=== PATIENT | female | born 2005 | race Caucasian/White ===

== ENCOUNTER 2024-09-22 09:56 | Outpatient (AMB) | payer MEDICAID, SELFPAY ==
[2024-09-22 10:13] VITALS: BP 110/74; PULSE 86; RESP 18; TEMP 36.2; O2SAT 86; BMI 18.1
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
== END 2024-09-22 10:36 | disposition home or self-care (01) ==
LOC: HODSOBC 09:56
PROVIDERS: Supervising Provider Obstetrics & Gynecology; Visit Provider Obstetrics & Gynecology
DX: O09.891 Supervision of other high risk pregnancies, first trimester (principal); Z3A.10 10 weeks gestation of pregnancy; O99.011 Anemia complicating pregnancy, first trimester; O21.0 Mild hyperemesis gravidarum; Z87.891 Personal history of nicotine dependence
CPT/HCPCS: 76801; 99203; G0463

== ENCOUNTER 2024-10-22 10:52 | Outpatient (AMB) | payer MEDICAID, SELFPAY ==
[2024-10-22 11:00] VITALS: BP 105/71; PULSE 90; RESP 18; TEMP 36.3; O2SAT 99; BMI 18.8
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
== END 2024-10-22 11:34 | disposition home or self-care (01) ==
LOC: HODSOBC 10:52
PROVIDERS: PCP Obstetrics & Gynecology; Referring Provider Obstetrics & Gynecology; Supervising Provider Obstetrics & Gynecology; Visit Provider Obstetrics & Gynecology
DX: O09.612 Supervision of young primigravida, second trimester (principal); Z3A.16 16 weeks gestation of pregnancy; O09.892 Supervision of other high risk pregnancies, second trimester; O99.012 Anemia complicating pregnancy, second trimester; D50.9 Iron deficiency anemia, unspecified; O99.891 Other specified diseases and conditions complicating pregnancy; R82.4 Acetonuria; Z87.891 Personal history of nicotine dependence
CPT/HCPCS: 99214; G0463

== ENCOUNTER 2024-11-20 10:29 | Outpatient (AMB) | payer MEDICAID, SELFPAY ==
[2024-11-20 10:43] VITALS: BP 100/66; PULSE 87; RESP 17; TEMP 36.7; O2SAT 98; BMI 19.5
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
== END 2024-11-20 11:19 | disposition home or self-care (01) ==
PROVIDERS: Supervising Provider Obstetrics & Gynecology; Visit Provider Obstetrics & Gynecology
DX: O09.92 Supervision of high risk pregnancy, unspecified, second trimester (principal); Z3A.20 20 weeks gestation of pregnancy
CPT/HCPCS: 99213; G0463

== ENCOUNTER 2025-01-06 08:52 | Outpatient (AMB) | payer MEDICAID, SELFPAY ==
[2025-01-06 09:11] VITALS: BP 113/77; PULSE 75; RESP 17; TEMP 36.5; O2SAT 99; BMI 21.7
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
== END 2025-01-06 09:44 | disposition home or self-care (01) ==
LOC: HODSOBC 08:52
PROVIDERS: Supervising Provider Obstetrics & Gynecology; Visit Provider Obstetrics & Gynecology
DX: O09.892 Supervision of other high risk pregnancies, second trimester (principal); O99.012 Anemia complicating pregnancy, second trimester; Z3A.26 26 weeks gestation of pregnancy; Z87.891 Personal history of nicotine dependence
CPT/HCPCS: 99213; G0463

== ENCOUNTER 2025-02-03 08:48 | Outpatient (AMB) | payer MEDICAID, SELFPAY ==
[2025-02-03 09:03] VITALS: BP 108/69; PULSE 90; RESP 16; TEMP 36.2; O2SAT 98; BMI 22.9
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
== END 2025-02-03 09:43 | disposition home or self-care (01) ==
LOC: HODSOBC 08:48
PROVIDERS: Supervising Provider Obstetrics & Gynecology; Visit Provider Obstetrics & Gynecology
DX: Z34.03 Encounter for supervision of normal first pregnancy, third trimester (principal); Z3A.30 30 weeks gestation of pregnancy; Z23 Encounter for immunization
CPT/HCPCS: 90471; 90715; 99213; G0463

== ENCOUNTER 2025-02-23 09:38 | Outpatient (AMB) | payer MEDICAID, SELFPAY ==
[2025-02-23 10:20] VITALS: BP 107/74; PULSE 100; RESP 18; TEMP 36.4; O2SAT 99; BMI 23.9
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
== END 2025-02-23 10:51 | disposition home or self-care (01) ==
LOC: HODSOBC 09:38
PROVIDERS: Supervising Provider Obstetrics & Gynecology; Visit Provider Obstetrics & Gynecology
DX: O09.893 Supervision of other high risk pregnancies, third trimester (principal); Z3A.33 33 weeks gestation of pregnancy; O99.013 Anemia complicating pregnancy, third trimester; D50.9 Iron deficiency anemia, unspecified; Z87.891 Personal history of nicotine dependence
CPT/HCPCS: 99214; G0463

== ENCOUNTER 2025-03-12 13:54 | Outpatient (AMB) | payer MEDICAID, SELFPAY ==
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
[2025-03-12 14:00] VITALS: BP 120/84; PULSE 120; RESP 16; TEMP 36.2; O2SAT 99; BMI 24.8
== END 2025-03-12 14:10 | disposition home or self-care (01) ==
LOC: HODSOBC 13:54
PROVIDERS: Supervising Provider Obstetrics & Gynecology; Visit Provider Obstetrics & Gynecology
DX: O09.893 Supervision of other high risk pregnancies, third trimester (principal); O99.013 Anemia complicating pregnancy, third trimester; D50.9 Iron deficiency anemia, unspecified; Z3A.35 35 weeks gestation of pregnancy
CPT/HCPCS: 99213; G0463

== ENCOUNTER 2025-03-25 13:54 | Outpatient (AMB) | payer MEDICAID, SELFPAY ==
[2025-03-25 14:05] VITALS: BP 112/79; PULSE 80; RESP 18; TEMP 36.2; O2SAT 98; BMI 24.9
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
== END 2025-03-25 14:32 | disposition home or self-care (01) ==
LOC: HODSOBC 13:54
PROVIDERS: Supervising Provider Obstetrics & Gynecology; Visit Provider Obstetrics & Gynecology
DX: O09.893 Supervision of other high risk pregnancies, third trimester (principal); O99.013 Anemia complicating pregnancy, third trimester; D50.9 Iron deficiency anemia, unspecified; Z3A.37 37 weeks gestation of pregnancy; Z36.85 Encounter for antenatal screening for Streptococcus B
CPT/HCPCS: 99214; G0463

== ENCOUNTER 2025-04-02 14:50 | Outpatient (AMB) | payer MEDICAID, SELFPAY ==
[2025-04-02 14:57] VITALS: BP 111/77; PULSE 90; RESP 18; TEMP 36.6; O2SAT 98; BMI 25.2
--- NOTE | 2025-04-02 14:57 | OBCLNT_ITS ---
Vital Signs 04/02/25 14:57 Height 1.63 m Height Method Stated Weight 67.188 kg Weight Measurement Method Standing Scale BMI 25.2 BP 111/77 Blood Pressure Source Automatic Cuff Blood Pressure Location Right Upper Arm Position Sitting Respiration 18 Pulse 90 Pulse Source Monitor Temp 97.8 F Temp Source Temporal Artery Scan Pulse Oximetry (%) 98 Oxygen Delivery Method Room Air Allergies/Home Meds Allergies & Medications Allergies No Known Allergies Allergy (Verified 05/24/25 10:00) Medication Reconciliation vits no.126-ferrous fum 28 mg iron-folic acid 800 mcg tablet (Classic ) 1 tab PO QDAY 90 days #90 tabs 01/22/25 [Rx Confirmed 05/24/25] ferrous sulfate 325 mg (65 mg iron) tablet 325 mg PO BID 90 days #180 tabs 02/23/25 [Rx Confirmed 05/24/25] estradiol 0.01% (0.1 mg/gram) vaginal cream 1 g vaginal QWEEK 60 days #42.5 grams 05/24/25 [Rx] Intake Visit Data Collection New Patient or Established: Established Patient (seen at [facility] within 3 years) Reason for Visit:: OBC Seen by Clinical Staff ONLY (RN/MA): No Retail Training Manager Required: No Do You Feel Safe at Home: Yes Authorities Contacted: N/A PCP or OBGYN visit in last 3 months: Yes Hx Now: Yes Are you currently on any form of Control: No Pain Present Currently: No Pain Scale Used: Garcia-Bond/Numerical Pain scale:: 0 Smoking Status Smoking Status: Former smoker Immunizations Flu Vaccine in the Last 12 Months: No Flu Vaccine Exclusion Criteria: No Exclusion Criteria Questionnaires Covid-19 Vaccine Questionnaire Has patient been vacinated for Covid-19 Have you been vacinated for Covid-19: No PHQ-9 PHQ-2 Over the last 2 weeks, how often have you been bothered by any of the following problems? 1. Little interest or pleasure in doing things: not at all 2. Feeling down, depressed, or hopeless: not at all Total score: 0 PHQ-9 3. Trouble falling or staying asleep, or sleeping too much: Not at all 4. Feeling tired or having little energy: Not at all 5. Poor appetite or overeating: Not at all 6. Feeling bad about yourself - or that you are a failure or have let yourself or your family down: Not at all 7. Trouble concentrating on things, such as reading the newspaper or watching television: Not at all 8. Moving or speaking so slowly that other people could have noticed? - Or the opposite - being so fidgety or restless that you have been moving around a lot more than usual: not at all 9. Thoughts that you would be better off or of hurting yourself in some way : Not at all Total score: 0 If you checked off any problems, how difficult have these problems made it for you to do your work, take care of things at home, or get along with other people?: not difficult at all Source: Developed by Drs. Tyler Galvez, Arelis Felix, Galo Dudley and colleagues, with an educational dylan from [employer]. Depression screen completed yes Social History Living Situation History Marital Status: Life Partner Lives With: Family Housing: House Tobacco History Smoking Status: Former smoker Second Hand Smoke Exposure: No Alcohol History Alcohol Intake: Former Domestic Abuse History Do You Feel Safe at Home: Yes History of Present Illness HPI Narrative - She has a history of iron deficiency anemia and reports that her iron studies have improved since last visit. - She is currently taking iron supplementation twice daily. - Patient reports the baby is active. - She experiences occasional contractions at home that are very far apart. - Patient inquired about mucus plug, noting she felt like it was coming out but was unsure. - She denies regular contractions or other concerning symptoms. Exam General General Appearance: alert, in no apparent distress and healthy appearing Head Head exam: atraumatic Neck Neck exam: Present normal inspection and trachea midline Chest Chest inspection: Present normal inspection and symmetric chest wall rise External exam: Present normal external exam; Absent tenderness Neuro Neurological exam: Present oriented X3 Psych Psychiatric exam: Present normal affect and normal mood Office Procedures OBC Clinic LOC & Office Proc's Nursing/Assessment Patient Status: Established Patient OB Clinic Nursing Assessment: Medication Reconciliation, Update PMH in EMR and Vital Signs OB Clinic Coordination of Care: Complex Care and Chronic Disease 1-5, Education Complex Pt/Fam, Consent,records obtained, informed consent and Staff clarify orders Special Needs: Heart tones Established Patient Charge Established Patient Point Assignment: 120 Established Patient Point Charge: EP Level 4 (120-155) Assessment & Plan Diagnosis / Problem List (1) Supervision of high risk , unspecified, third trimester: Status: Acute Plan Problem List - Iron deficiency anemia - at 38 weeks and 3 days gestation Assessment 38-week and 3-day 1 para 0 patient presenting for routine visit. Cervical examination reveals fingertip dilation with membrane sweeping performed. Patient reports intermittent, widely spaced contractions and possible mucus plug passage. History of iron deficiency anemia with improved iron studies on current twice-daily iron supplementation. heart rate 152 bpm, which is normal. Baby remains active with good movement reported. Plan - Membrane sweeping performed at 38 weeks 3 days gestation - Continue iron supplementation (currently taking BID iron) - Follow-up appointment scheduled for next week - Patient counseled to be prepared for hospital admission at any time - Patient advised to expect cramping following membrane sweeping 1. Progress Reviewed gestational age (38 weeks and 3 days), growth, and heart r ate. Planned frequent visits (every 2 weeks until 36 weeks, then weekly). 2. Instructed patient to monitor movements and report decreases immediately. 3. Testing Counseled on routine third-trimester labs per guidelines. Discussed potential need for ultrasound or monitoring based on risk factors. 4. Preeclampsia Precaution Educated on preeclampsia signs: severe headache, vision changes, right upper quadrant pain, sudden swelling. Advised urgent reporting of symptoms and discussed blood pressure monitoring if high risk. 5. Labor Precautions Reviewed labor signs: regular contractions, pelvic pressure, back pain, bleeding, or fluid leakage. Instructed to seek immediate care for these symptoms. 6. Lifestyle and Delivery Preparation Reinforced vitamins, nutrition, and safe activity. Discussed plan, pain management, and . Advised on labor preparation (e.g., hospital bag) and expectations. 7. Psychosocial Support Assessed emotional well-being and offered resources for mental health or parenting support.
== END 2025-04-02 15:09 | disposition home or self-care (01) ==
LOC: HODSOBC 14:50
PROVIDERS: Supervising Provider Obstetrics & Gynecology; Visit Provider Obstetrics & Gynecology
DX: O09.893 Supervision of other high risk pregnancies, third trimester (principal); O99.013 Anemia complicating pregnancy, third trimester; Z3A.38 38 weeks gestation of pregnancy; D50.9 Iron deficiency anemia, unspecified; Z87.891 Personal history of nicotine dependence
CPT/HCPCS: 99214; G0463

== ENCOUNTER 2025-04-09 10:57 | Outpatient (AMB) | payer MEDICAID, SELFPAY ==
--- NOTE | 2025-04-09 11:01 | OBCLNT_ITS ---
Vital Signs 04/09/25 11:04 Height 1.63 m Height Method Stated Weight 68.549 kg Weight Measurement Method Standing Scale BMI 25.8 BP 117/80 Blood Pressure Source Automatic Cuff Blood Pressure Location Left Upper Arm Position Sitting Respiration 18 Pulse 92 Pulse Source Monitor Temp 98 F Temp Source Oral Pulse Oximetry (%) 98 Oxygen Delivery Method Room Air Allergies/Home Meds Allergies & Medications Allergies No Known Allergies Allergy (Verified 05/24/25 10:00) Medication Reconciliation vits no.126-ferrous fum 28 mg iron-folic acid 800 mcg tablet (Classic ) 1 tab PO QDAY 90 days #90 tabs 01/22/25 [Rx Confirmed 05/24/25] ferrous sulfate 325 mg (65 mg iron) tablet 325 mg PO BID 90 days #180 tabs 02/23/25 [Rx Confirmed 05/24/25] estradiol 0.01% (0.1 mg/gram) vaginal cream 1 g vaginal QWEEK 60 days #42.5 grams 05/24/25 [Rx] Intake Visit Data Collection New Patient or Established: Established Patient (seen at [facility] within 3 years) Reason for Visit:: CARE Seen by Clinical Staff ONLY (RN/MA): No Project Consultant Required: No Do You Feel Safe at Home: Yes Authorities Contacted: N/A PCP or OBGYN visit in last 3 months: Yes Hx Now: Yes Are you currently on any form of Control: No Pain Present Currently: No Pain Scale Used: Garcia-Bond/Numerical Pain scale:: 0 Smoking Status Smoking Status: Former smoker Immunizations Flu Vaccine in the Last 12 Months: Yes Flu Vaccine Exclusion Criteria: Already Received Questionnaires Covid-19 Vaccine Questionnaire Has patient been vacinated for Covid-19 Have you been vacinated for Covid-19: Yes PHQ-9 PHQ-2 Over the last 2 weeks, how often have you been bothered by any of the following problems? 1. Little interest or pleasure in doing things: not at all 2. Feeling down, depressed, or hopeless: not at all Total score: 0 PHQ-9 3. Trouble falling or staying asleep, or sleeping too much: Not at all 4. Feeling tired or having little energy: Not at all 5. Poor appetite or overeating: Not at all 6. Feeling bad about yourself - or that you are a failure or have let yourself or your family down: Not at all 7. Trouble concentrating on things, such as reading the newspaper or watching television: Not at all 8. Moving or speaking so slowly that other people could have noticed? - Or the opposite - being so fidgety or restless that you have been moving around a lot more than usual: not at all 9. Thoughts that you would be better off or of hurting yourself in some way: Not at all Total score: 0 Source: Developed by Drs. Tyler Galvez, Arelis Felix, Galo Dudley and colleagues, with an educational dylan from [email or web address]. Depression screen completed yes Social History Living Situation History Lives With: Family Housing: House Tobacco History Smoking Status: Former smoker Second Hand Smoke Exposure: No Alcohol History Alcohol Intake: Former Domestic Abuse History Do You Feel Safe at Home: Yes History of Present Illness HPI Narrative - Sari Ponce is a female scheduled for induction of labor on April 22, 2025, presenting for routine visit. - She reports no contractions or other significant symptoms. - Baby remains active with normal heart rate of 154 beats per minute. - She denies any bleeding or spotting since her last cervical examination. Exam General General Appearance: alert, in no apparent distress and healthy appearing Head Head exam: atraumatic Neck Neck exam: Present normal inspection and trachea midline Chest Chest inspection: Present normal inspection and symmetric chest wall rise External exam: Present normal external exam; Absent tenderness Neuro Neurological exam: Present oriented X3 Psych Psychiatric exam: Present normal affect and normal mood Office Procedures OBC Clinic LOC & Office Proc's Nursing/Assessment Patient Status: Established Patient OB Clinic Nursing Assessment: Medication Reconciliation, Update PMH in EMR and Vital Signs OB Clinic Coordination of Care: Complex Care and Chronic Disease 1-5, Consent,records obtained, informed consent, Education Simp Pt/Fam, 1 Ins Authorization, Lab and Imaging orders, Results/Orders obtained and Staff clarify orders Special Needs: Heart tones Miscellaneous Interventions: Pelvic no cultures Established Patient Charge Established Patient Point Assignment: 160 Established Patient Point Charge: EP Level 5 (160-above) Assessment & Plan Diagnosis / Problem List (1) Supervision of high risk , unspecified, third trimester: Status: Acute Plan Problem List - Post-term Assessment Patient is at term with normal heart rate of 154 bpm and active movement. Cervical examination reveals softening compared to previous visit with no change in dilation, and membrane sweeping was performed. Patient reports no contractions, bleeding, or spotting since last examination. Plan - Induction of labor scheduled for April 22, 2025 - Patient given one week to go into spontaneous labor - If no spontaneous labor occurs by 41 weeks gestation, proceed with scheduled induction - Membrane sweep performed during visit 1. Progress Reviewed gestational age, growth, and heart rate (154 bpm, normal). Patient scheduled for induction of labor on April 22, 2025. Cervical exam performed showing softening compared to previous visit. Membrane sweeping performed. Planned frequent visits (every 2 weeks until 36 weeks, then weekly). 2. Instructed patient to monitor movements and report decreases immediately. Patient confirmed baby is active. 3. Testing Counseled on routine third-trimester labs per guidelines. Discussed potential need for ultrasound or monitoring based on risk factors. 4. Preeclampsia Precaution Educated on preeclampsia signs: severe headache, vision changes, right upper quadrant pain, sudden swelling. Advised urgent reporting of symptoms and discussed blood pressure monitoring if high risk. 5. Labor Precautions Reviewed labor signs: regular contractions, pelvic pressure, back pain, bleeding, or fluid leakage. Instructed to seek immediate care for these symptoms. Patient currently reports no significant contractions. 6. Lifestyle and Delivery Preparation Reinforced vitamins, nutrition, and safe activity. Discussed plan, pain management, and . Advised on labor preparation (e.g., hospital bag) and expectations. Discussed induction scheduling to avoid going significantly beyond 41 weeks gestation. 7. Psychosocial Support Assessed emotional well-being and offered resources for mental health or parenting support.
[2025-04-09 11:04] VITALS: BP 117/80; PULSE 92; RESP 18; TEMP 36.6; O2SAT 98; BMI 25.8
== END 2025-04-09 11:15 | disposition home or self-care (01) ==
LOC: HODSOBC 10:57
PROVIDERS: Supervising Provider Obstetrics & Gynecology; Visit Provider Obstetrics & Gynecology
DX: O09.893 Supervision of other high risk pregnancies, third trimester (principal); O48.0 Post-term pregnancy; Z3A.00 Weeks of gestation of pregnancy not specified; Z87.891 Personal history of nicotine dependence
CPT/HCPCS: 99215; G0463

== ENCOUNTER 2025-04-16 00:45 | Inpatient (IN) | payer MEDICAID, SELFPAY ==
[2025-04-16] VITALS (127 sets, daily range): BP systolic 103–149; BP diastolic 57–97; PULSE 81–155; RESP 16–100; TEMP 36.6–37.4; O2SAT 91–100; BMI 25.5
[2025-04-16] MEDS: fentaNYL CIT INJ 50 mCg/ML AMP 2ML 100 MCG IVP ×2 (04:09→08:29)
[2025-04-16] MEDS: RINGERS LACTATED 1000 ML 1,000 ML 125 ML IV (04:15)
--- NOTE | 2025-04-16 04:16 | ESHP_ITS ---
Documentation for date of: 04/16/25 OB Labor/Induct. HPI History of Present Illness Chief complaint: contractions : 1 Para: 0 Term pregnancies: 0 pregnancies: 0 Living children: 0 History of Abortions: Spontaneous and Elective: 0 History of Vaginal deliveries: 0 History of sections: No History of : No Date of last menstrual period: 07/02/24 COREY: 04/13/25 Gestational Age (weeks): 40 Gestational Age (days): 3 Gestational age based on last menstrual period: 41 History of present illness: Patient presents for regular, painful ctx. No LOF. No vaginal bleeding. Normal movement. No fevers/chills. History of Present Dating criteria: based on 1st trimester US only Adequate Care: Yes Ultrasounds: normal mid trimester US Narrative: complicated by anemia Labs Maternal Blood Type: O Pos Narrative: 09/22/2024 for O+\antibody screen negative\HIV negative\GC chlamydia negative\hepatitis BSag negative\hepatitis C negative\RPR nonreactive\rubella immune. Hemoglobin 9.8. NIPT 46 XY 1hr glucola 85 Review of Systems Review of Systems Narrative Review of Systems: Review of Systems Systems Reviewed: All systems reviewed, normal except as documented Constitutional Constitutional: Denies body ache(s), Denies chills, Denies fever(s) and Denies headache(s) ENT Ears, Nose, Mouth, and Throat: Denies headache(s) and Denies vertigo Cardiovascular Cardiovascular: Denies chest pain, Denies palpitations, Denies dyspnea and Denies syncope Respiratory Respiratory: Denies cough, Denies dyspnea Gastrointestinal Gastrointestinal: Denies nausea and Denies vomiting Neurologic Neurologic: Denies convulsions, Denies headache(s), Denies other visual disturbances, Denies syncope and Denies vertigo Past Medical History Family History OTHER FAMILY HX: non-contributory Surgical History SURGICAL: Negative Section Social History SOCIAL: Former tobacco. No ETOH/illicit drug use. Past Medical History Comments PMH COMMENT: anemia Meds Home Medications and Allergies Allergies Allergy/AdvReac Type Severity Reaction Status Date / Time No Known Allergies Allergy Verified 04/16/25 01:37 OB Exam Physical Exam Vital signs: Temp Pulse Resp BP Pulse Ox 97.9 F 89 16 104/69 98 04/16/25 01:00 04/16/25 01:32 04/16/25 03:38 04/16/25 01:32 04/16/25 02:31 Narrative: General: well developed, well nourished, no acute distress, conversant Cardiac: normal heart rate Lungs: breathing without distress Abdomen: soft, gravid, non-tender, no rebound or guarding Extremities: no pain with palpation of calves Detailed Labor and Delivery Exam Dilation (cm): 4 Effacement (%): 80 Cervix position: anterior station: -2 Presentation: Vertex Membranes: intact monitor accelerations: 15x15 monitor decelerations: None tank terminal gauger variability: Moderate (11-25) Contraction frequency (min): q2-4min OB Results Labs 04/16/25 04:20 OB Assessment & Plan Assessment and Plan (1) Active labor at term: Status: Acute Assessment and plan: Sari is a 19yo with SIUP at 40&3wk presenting in active labor. Regular/painful contractions, SCE: 4/80/-2. Vitals wnl, benign exam. Reassuring assessment. PMhx/ significant for: Anemia taking iron PNC with Dr. Delgado Plan: -Admit to L&D -Establish IV, routine labs -CEFM -Clear liquid diet -Medical Auditor/consent re: -GBS status: negative -Anticipate -Safe to proceed (2) 40 weeks gestation of : Status: Acute (3) Anemia affecting : Status: Acute (3) Anemia affecting Qualifiers: Trimester: third trimester Qualified Code(s): O99.013 - Anemia complicating , third trimester
[2025-04-16 04:42] LABS: Basophils # (Auto) 0.0 Thou/mm3 (0.0-0.2); Basophils % (Auto) 0 % (0-2.5); Eosinophils # (Auto) 0.0 Thou/mm3 (0.0-0.5); Eosinophils % (Auto) 0 % (0-10); Hematocrit 35.7 % (36.0-46.0); Hemoglobin 11.4 g/dL (12.0-16.0); Immature Granulocytes Auto 0.03 Thou/mm3 (0.00-0.00); Lymphocytes # (Auto) 1.7 Thou/mm3 (1.0-4.8); Lymphocytes % (Auto) 15 % (10-50); Mean Corpuscular HGB Conc 31.9 g/dl (31.0-37.0); Mean Corpuscular Hemoglobin 22.1 pg (25.0-35.0); Mean Corpuscular Volume 69 fL (80-100); Monocytes # (Auto) 0.6 Thou/mm3 (0.0-0.8); Monocytes % (Auto) 5 % (0-12); Neutrophils # (Auto) 9.2 Thou/mm3 (1.8-7.7); Neutrophils % (Auto) 80 % (37-80); Nucleated Red Blood Cell # 0.00 Thou/mm3 (0.00-0.00); Nucleated Red Blood Cell % 0 /100 WBC (0); Platelet Count 156 Thou/mm3 (140-440); RDW Standard Deviation 37.7 fL (36.4-46.3); Red Blood Count 5.17 Miln/mm3 (4.00-5.20); White Blood Count 11.6 Thou/mm3 (3.6-11.0)
[2025-04-16 05:02] LABS: Path Review Blood Smear Sent to Pathologist
[2025-04-16 06:30] LABS: Syphilis Nonreactive (Nonreactive)
--- NOTE | 2025-04-16 06:56 | PD.LDPN ---
Documentation for date of: 04/16/25 OB Labor Progress Note Pelvic Exam Dilation (cm): 7 Effacement (%): 80 station: -2 Amniotic membrane status: Intact Contractions Monitor mode: External Contraction frequency: q2-4min Contraction intensity: Strong Status status: Category ll Assessment and Plan Comments: Intrapartum Note Sari recently received epidural. Feeling some pressure, but epidural overall working well. Vitals wnl, afebrile Cat I-II FHRT for min-mod ninfa, +accels, occasional late vs variable decel but nothing persistent SCE 7/80/-2, intact Plan to continue to closely monitor CEFM Safe to proceed Sign out to Dr. Delgado at 0700 Marcia Encinas MD
[2025-04-16] MEDS: LIDOCAINE HCL 1% 20 ML VIAL INFL (09:35)
[2025-04-16] MEDS: MINERAL OIL 30 ML UDC TOP (10:04)
[2025-04-16] MEDS: OXYTOCIN in NS 20 units 20 UNIT/1,000 ML BAG 125 UNIT IV (10:04)
[2025-04-16] MEDS: METHYLERGONOVINE INJ 0.2 MG/ML VIAL IM (10:07)
[2025-04-16] MEDS: OXYTOCIN INJ 10 UNIT/ML VIAL IM (10:08)
[2025-04-16] MEDS: BENZO/LANO/ALOE (Dermoplast) 60 GM CAN 1 SPRAY TOP (10:13)
--- NOTE | 2025-04-16 10:29 | PD.LDDELS ---
Vacuum Assisted Delivery General Patient Counseled by physician:: Yes Informed consent to patient:: Yes Estimated weight:: 3628.739 g Cervical dilation:: fully dilated station:: +2 position:: LORRAINE Molding:: Yes Caput:: Yes Vacuum Application Vacuum type:: Mityvac Vacuum application:: flexing median Cup Placement Flexion point identified:: Yes Cup approp. for head position:: Yes Maternal tissue excluded:: Yes Vacuum Procedure Number of pulls (contractions):: 3 Number of pop-offs:: 2 Recommended range maintained:: Yes Vacuum reduced between pulls:: Yes Advancement made each pull:: Yes Vacuum successful:: Yes Immediate Mcgregor Evaluation Immediate assessment:: no apparent injury Hand-off care to:: nursery nurse Data (Serrano) Data Hx Section: No : 1 Term: 0 : 0 Livin Abortions: Spontaneous & Theraputic: 0 Delivery Data (Serrano) Labor Data Initiation of labor: Spontaneous Induction/Augmentation Agent: None ROM date: 04/16/25 ROM time: 08:20 Amniotic membrane rupture type: Spontaneous Amniotic fluid description: Clear Delivery Data Complete dilation date: 04/16/25 Complete dilation time: 08:30 delivery date: 04/16/25 delivery time: 10:01 Placenta delivery date: 04/16/25 Placenta delivery time: 10:01 Delivered by: Thai Delgado Delivery nurse: Dawit Robertson RN Supervisor [employer] at delivery: No Support person(s) at delivery: fob Delivery Method Presentation: Vertex Anesthesia Type Anesthesia Type: Epidural Placenta Placenta delivery description: Spontaneous Cord blood sent to lab: Yes cord blood collection: Cord Blood Type Episiotomy Episiotomy description: Midline EBL Estimated blood loss (ml): 350 Umbilical Cord cord description: 3 Vessels Additional Procedures Patient pushed for about 40 minutes. The head was a +2 station when the vacuum was applied after patient counseling. There were 2 pop-off's but the vacuum device was noted to be defective and a new device was obtained. The head delivered with 1 pull with the new vacuum device. The head restituted to the left occipital position, the rest of the shoulders and body were delivered with gentle downward traction. Unable Umbilical cord was doubly clamped and divided and infant was handed over to the team. Placenta was delivered through gentle traction on the umbilical cord and fundal pressure. An exam was performed and patient was noted to have a third-degree laceration which extended from the midline episiotomy. This was repaired using 2-0 Vicryl. After repair the laceration was noted to be hemostatic. Data (Serrano) Mcgregor Data order: 1 's gender: Male Identification band number: [id number] weight (gms): 3850 g Weight (pounds): 8 lbs and 7.8 ozs 1 minute: 8 5 minutes: 9
[2025-04-16] MEDS: TRANEXAMIC ACID 1,000 MG IVPB 1,000 MG/100 ML BAG 200 MG IV (10:35)
[2025-04-16] MEDS: IBUPROFEN TAB 400 MG TABLET 800 MG PO ×2 (11:14→21:57)
[2025-04-16] MEDS: ceFAZolin/D5W 2 GM IV 2 GM/100 ML BAG IV ×2 (11:14→21:24)
[2025-04-16] MEDS: HYDROcodone/APAP 5/325 TABLET 1 TAB PO (19:22)
[2025-04-17 00:47] VITALS: BP 121/81; PULSE 92; RESP 18; TEMP 36.9; O2SAT 95
[2025-04-17 04:00] VITALS: BP 134/92; PULSE 78; RESP 16; TEMP 36.8; O2SAT 99
[2025-04-17] MEDS: HYDROcodone/APAP 5/325 TABLET 2 TAB PO (04:09)
[2025-04-17] MEDS: ceFAZolin/D5W 2 GM IV 2 GM/100 ML BAG IV ×3 (06:06→22:00)
[2025-04-17 07:35] LABS: Basophils # (Auto) 0.0 Thou/mm3 (0.0-0.2); Basophils % (Auto) 0 % (0-2.5); Eosinophils # (Auto) 0.1 Thou/mm3 (0.0-0.5); Eosinophils % (Auto) 1 % (0-10); Hematocrit 30.3 % (36.0-46.0); Hemoglobin 9.5 g/dL (12.0-16.0); Immature Granulocytes Auto 0.06 Thou/mm3 (0.00-0.00); Lymphocytes # (Auto) 1.6 Thou/mm3 (1.0-4.8); Lymphocytes % (Auto) 14 % (10-50); Mean Corpuscular HGB Conc 31.4 g/dl (31.0-37.0); Mean Corpuscular Hemoglobin 22.2 pg (25.0-35.0); Mean Corpuscular Volume 71 fL (80-100); Monocytes # (Auto) 0.7 Thou/mm3 (0.0-0.8); Monocytes % (Auto) 6 % (0-12); Neutrophils # (Auto) 8.9 Thou/mm3 (1.8-7.7); Neutrophils % (Auto) 79 % (37-80); Nucleated Red Blood Cell # 0.00 Thou/mm3 (0.00-0.00); Nucleated Red Blood Cell % 0 /100 WBC (0); Platelet Count 129 Thou/mm3 (140-440); RDW Standard Deviation 38.2 fL (36.4-46.3); Red Blood Count 4.28 Miln/mm3 (4.00-5.20); White Blood Count 11.3 Thou/mm3 (3.6-11.0)
--- NOTE | 2025-04-17 08:32 | PD.LDPPPRG ---
Subjective Subjective Interval history: Delivery type: Vacuum-assisted vaginal delivery with third-degree laceration Patient doing well this morning. No acute complaints. Ambulating, tolerating p.o., and voiding without difficulty. HTN/Pre-E screen negative: No CP, SOB, COLÓN, visual changes, RUQ pain. : Yes Lochia: diminishing Bowel: Flatus + / BM + UOP: Voiding freely Exam Vital Signs Temp Pulse Resp BP Pulse Ox O2 Del Method 98.2 F 78 16 134/92 H 99 Room Air 04/17/25 04:00 04/17/25 04:00 04/17/25 04:00 04/17/25 04:00 04/17/25 04:00 04/17/25 04:00 Constitutional Constitutional: no acute distress Routine HEENT Exam Head: Present normocephalic and atraumatic Eye: Present EOMI and PERRL ENT: Present mucous membranes moist Routine Neck Exam Neck: Present supple and trachea midline Routine Respiratory Exam Respiratory: Present chest non-tender, lungs clear, normal breath sounds and no resp distress Routine Cardiovascular Exam Cardiovascular: Present RRR Routine Abdominal Exam Abdominal: Present soft and normoactive bowel sounds Routine Extremities Exam Extremities: Present full ROM Routine Skin Exam Skin: Present intact, dry and warm Routine Neurological Exam Neurological: Present alert, oriented X3 and CN II-XII intact Routine Psychiatric Exam Psychiatric: Present normal affect and normal thought process Objective Labs 04/17/25 07:00 Labs: Laboratory Results - last 24 hr 04/17/25 07:00 WBC 11.3 H RBC 4.28 Hgb 9.5 L Hct 30.3 L MCV 71 L MCH 22.2 L MCHC 31.4 RDW Std Deviation 38.2 Plt Count 129 L Neut % (Auto) 79 Lymph % (Auto) 14 [place] % (Auto) 6 Eos % (Auto) 1 Baso % (Auto) 0 Neut # (Auto) 8.9 H Lymph # (Auto) 1.6 [place] # (Auto) 0.7 Eos # (Auto) 0.1 Baso # (Auto) 0.0 Immature Gran # (Auto) 0.06 H Absolute Nucleated RBC 0.00 Immature Gran % 1 H Nucleated RBC % 0 Assessment & Plan Problem List (1) Active labor at term: Status: Acute (2) 40 weeks gestation of : Status: Acute (3) Anemia affecting : Status: Acute (4) Vacuum-assisted vaginal delivery: Status: Acute Assessment and plan: 1. Continue routine /post-op care 2. Labs reviewed, cbc appropriate 3. Remove dressing/Kerr 4. Encourage to ambulate, shower 5. Encourage PO intake, breast feeding 6. Plan to keep patient for an additional day due to extensive laceration for IV antibiotics, anticipate discharge tomorrow Time Spent With Patient Time: Total time spent is greater than 50% in coordination of care (as documented) at patient's floor/unit and/or counseling patient:
[2025-04-17 08:45] VITALS: BP 119/80; PULSE 79; RESP 16; TEMP 36.6; O2SAT 99
[2025-04-17] MEDS: DOCUSATE SOD 100 MG CAPSULE PO (08:58)
[2025-04-17] MEDS: IBUPROFEN TAB 400 MG TABLET 800 MG PO ×2 (08:59→16:47)
--- NOTE | 2025-04-17 10:56 | PC.CC ---
0830-ASW completed a biopsychosocial assessment with the pt at bedside. Present ws the pts as pt was upon entry. ASW explained the reason for the room visit, as it was reported that the pt has history of anxiety and ASW was present to provide community resources. Pt reports she does not have current anxiety but reported that history of anxiety was years ago. Pt reports she has strong support from family and her significant other. Pt reports the FOB is Gil Danielle and is present in their lives. Pt reports she delivered her infant at 40 weeks and 3 days gestational age. Pt reports she was a vaginal delivery. Pt reports her care was consistent and saw Dr. Delgado at the [facility]. Pt reports the infants Peds is still undecided at this time. Pt reports once she receives the recommendation for Dr. Delgado on which Peds she will chose at that time. Pt reports she receives WIC, Food stamps ($293)and [place] ($795). Pt reports she is connected to [employer] managed by [employer]. Pt reports [facility]. ASW provided community resources from the [facility] and from the [facility] resource guide. Pt was receptive. Pt was viewed to be bonding appropriately with the infant. At this time, there are no concerns from SS and no CWS report will be made.
[2025-04-17 13:02] VITALS: BP 109/74; PULSE 71; RESP 16; TEMP 36.9; O2SAT 99
[2025-04-17 19:20] VITALS: BP 120/77; PULSE 73; RESP 16; TEMP 37.2; O2SAT 97
[2025-04-17 23:30] VITALS: BP 110/75; PULSE 72; RESP 16; TEMP 37.1; O2SAT 97
[2025-04-18] MEDS: IBUPROFEN TAB 400 MG TABLET 800 MG PO (01:25)
[2025-04-18 04:00] VITALS: BP 132/91; PULSE 72; RESP 16; TEMP 36.6; O2SAT 100
[2025-04-18] MEDS: ceFAZolin/D5W 2 GM IV 2 GM/100 ML BAG IV (05:45)
--- NOTE | 2025-04-18 05:50 | PD.LDPPPRG ---
Subjective Subjective Interval history: Delivery type: Vacuum-assisted vaginal delivery with third-degree laceration Patient doing well this morning. No acute complaints. Ambulating, tolerating p.o., and voiding without difficulty. HTN/Pre-E screen negative: No CP, SOB, COLÓN, visual changes, RUQ pain. : Yes Lochia: diminishing Bowel: Flatus + / BM + UOP: Voiding freely Exam Vital Signs Temp Pulse Resp BP Pulse Ox O2 Del Method 98 F 72 16 132/91 H 100 Room Air 04/18/25 04:00 04/18/25 04:00 04/18/25 04:00 04/18/25 04:00 04/18/25 04:00 04/17/25 23:30 Constitutional Constitutional: no acute distress Routine HEENT Exam Head: Present normocephalic and atraumatic Eye: Present EOMI and PERRL ENT: Present mucous membranes moist Routine Neck Exam Neck: Present supple and trachea midline Routine Respiratory Exam Respiratory: Present chest non-tender, lungs clear, normal breath sounds and no resp distress Routine Cardiovascular Exam Cardiovascular: Present RRR Routine Abdominal Exam Abdominal: Present soft and normoactive bowel sounds Routine Extremities Exam Extremities: Present full ROM Routine Skin Exam Skin: Present intact, dry and warm Routine Neurological Exam Neurological: Present alert, oriented X3 and CN II-XII intact Routine Psychiatric Exam Psychiatric: Present normal affect and normal thought process Objective Labs 04/17/25 07:00 Labs: Laboratory Results - last 24 hr 04/17/25 07:00 WBC 11.3 H RBC 4.28 Hgb 9.5 L Hct 30.3 L MCV 71 L MCH 22.2 L MCHC 31.4 RDW Std Deviation 38.2 Plt Count 129 L Neut % (Auto) 79 Lymph % (Auto) 14 [place] % (Auto) 6 Eos % (Auto) 1 Baso % (Auto) 0 Neut # (Auto) 8.9 H Lymph # (Auto) 1.6 [place] # (Auto) 0.7 Eos # (Auto) 0.1 Baso # (Auto) 0.0 Immature Gran # (Auto) 0.06 H Absolute Nucleated RBC 0.00 Immature Gran % 1 H Nucleated RBC % 0 Assessment & Plan Problem List (1) Active labor at term: Status: Acute (2) 40 weeks gestation of : Status: Acute (3) Anemia affecting : Status: Acute (4) Vacuum-assisted vaginal delivery: Status: Acute Assessment and plan: PPD/POD#2 1. Continue routine care 2. Transition to PO meds. 3. Encourage to ambulate/ breast-feed 4. Anticipate discharge home today. Time Spent With Patient Time: Total time spent is greater than 50% in coordination of care (as documented) at patient's floor/unit and/or counseling patient:
--- NOTE | 2025-04-18 05:51 | ESDS_ITS ---
DS: Providers Provider Date of admission: 04/16/25 03:49 Primary care physician: Physician No Primary/Family Admitting Provider: Marcia Encinas MD Attending Provider on Admission: Thai Delgado MD Consults: 04/16/25 10:35 Referral Routine Comment: Attending Provider on DC: Thai Delgado MD Discharging Provider: Thai Delgado MD DS: Diagnosis Discharge Diagnosis (1) Vacuum-assisted vaginal delivery: Status: Acute (2) Active labor at term: Status: Acute Problem List Completed Was Problem List Reviewed/Reconciled?: Yes Summary/Hosp Course Brief History: Patient presents for regular, painful ctx. No LOF. No vaginal bleeding. Normal movement. No fevers/chills. Peripartum Data Episiotomy Description: Midline Time Spent with Patient Time attestation: Total time spent providing and/or coordinating discharge services: Exam Vital Signs Temp Pulse Resp BP Pulse Ox O2 Del Method 98 F 72 16 132/91 H 100 Room Air 04/18/25 04:00 04/18/25 04:00 04/18/25 04:00 04/18/25 04:00 04/18/25 04:00 04/17/25 23:30 Discharge Plan Plan Patient Disposition: HOME (Self Care) Patient condition on transfer: Stable Prescriptions/Referrals Prescriptions/Med Rec: New hydrocodone-acetaminophen 5-325 mg tablet 1 tab PO Q6H MDD 4 PRN (Reason: pain) 5 Days Qty: 20 0RF docusate sodium [Stool Softener] 100 mg capsule 100 mg PO QDAY 30 Days Qty: 30 0RF ibuprofen 600 mg tablet 600 mg PO Q6H MDD 4 PRN (Reason: fever or pain) 10 Days Qty: 40 0RF amoxicillin-pot clavulanate 875-125 mg tablet 1 tab PO BID 7 Days Qty: 14 0RF Continued ferrous sulfate 325 mg (65 mg iron) tablet 325 mg PO BID 90 Days Qty: 180 2RF Classic 28 mg iron- 800 mcg tablet 1 tab PO QDAY 90 Days Qty: 90 8RF Referrals: Thai eDlgado MD [Physician, GRINDER OPERATOR TOOL] No Primary/Family,Physician [Primary Care Provider] Patient/Caregiver Discharge Instructions Meds to Beds: Yes Discharge Activity: activity as tolerated and other Other Discharge Activity Instructions:: vaginal rest and no heavy lifting more than 10 pounds for 6 weeks Other Discharge Diet Instructions: regular diet Print Language: Belarusian Activity Restrictions/Additional Instructions: follow up with Dr. Delgado in 4 to 6 weeks for visit, call office to schedule appointment Stand Alone Forms: Queenie Award Info., Patient Portal Info Letter Discharge Order Discharge Orders: Discharge (Routine); Ordered 04/18/25 Ordered By: Thai Delgado Planned Discharge Date 04/18/25
[2025-04-18] MEDS: ACETAMINOPHEN 325 MG TABLET 650 MG PO (07:58)
[2025-04-18 08:00] VITALS: BP 109/75; PULSE 68; RESP 16; TEMP 36.7; O2SAT 95
[2025-04-18] MEDS: DOCUSATE SOD 100 MG CAPSULE PO (08:01)
== END 2025-04-18 10:15 | disposition home or self-care (01) | DRG 542 ==
LOC: S4SX 10:58 → S4NX 14:34
PROVIDERS: Admitting Provider Obstetrics & Gynecology; Visit Provider Obstetrics & Gynecology
DX: O48.0 Post-term pregnancy (principal); Z37.0 Single live birth; Z3A.40 40 weeks gestation of pregnancy; O70.20 Third degree perineal laceration during delivery, unspecified; O99.02 Anemia complicating childbirth
CPT/HCPCS: 36415; 59025; 85025; 86780; 86850; 86900; 86901; J0689; J2210; J2590; J2795; J3010; J3490; J7120; S0191; A9270

== ENCOUNTER 2025-05-14 08:55 | Outpatient (AMB) | payer MEDICAID, SELFPAY ==
[2025-05-14 09:01] VITALS: BP 109/76; PULSE 93; RESP 18; TEMP 36.4; O2SAT 98; BMI 23.4
--- NOTE | 2025-05-14 09:01 | AMBOBPPN_ITS ---
Vital Signs 05/14/25 09:01 Height 1.63 m Height Method Stated Weight 61.915 kg Weight Measurement Method Standing Scale BMI 23.4 BP 109/76 Blood Pressure Source Automatic Cuff Blood Pressure Location Left Upper Arm Position Sitting Respiration 18 Pulse 93 Pulse Source Monitor Temp 97.6 F Temp Source Oral Pulse Oximetry (%) 98 Oxygen Delivery Method Room Air Allergies/Home Meds Allergies & Medications Allergies No Known Allergies Allergy (Verified 05/14/25 09:05) Medication Reconciliation vits no.126-ferrous fum 28 mg iron-folic acid 800 mcg tablet (Classic ) 1 tab PO QDAY 90 days #90 tabs 01/22/25 [Rx Confirmed 05/14/25] ferrous sulfate 325 mg (65 mg iron) tablet 325 mg PO BID 90 days #180 tabs 02/23/25 [Rx Confirmed 05/14/25] docusate sodium 100 mg capsule (Stool Softener) 100 mg PO QDAY 30 days #30 caps 04/18/25 [Rx Confirmed 05/14/25] Intake Visit Data Collection New Patient or Established: Established Patient (seen at [facility] within 3 years) Reason for Visit:: Seen by Clinical Staff ONLY (RN/MA): No Warehouse Distribution Specialist Required: No Do You Feel Safe at Home: Yes Authorities Contacted: N/A PCP or OBGYN visit in last 3 months: Yes Hx Now: No Are you currently on any form of Control: No Pain Present Currently: No Pain Scale Used: Garcia-Bond/Numerical Pain scale:: 0 Smoking Status Smoking Status: Never smoker Immunizations Flu Vaccine in the Last 12 Months: Yes Flu Vaccine Exclusion Criteria: Already Received RADIAGRAPH OPERATOR: Past Medical History Past Medical History: No Hx Neurological Disorders, No Hx Cardiac Disorders, No Hx Cancer, Yes Hx Blood Disorders, Yes Hx Anemia, No Hx Gastrointestinal Disor ders, No Hx Renal Disease, No Hx Diabetes Mellitus Type 1 and No Hx Diabetes Mellitus Type 2 Questionnaires Covid-19 Vaccine Questionnaire Has patient been vacinated for Covid-19 Have you been vacinated for Covid-19: Yes Social History Living Situation History Lives With: Family Housing: mobile Tobacco History Smoking Status: Never smoker Second Hand Smoke Exposure: No Alcohol History Alcohol Intake: Never Domestic Abuse History Do You Feel Safe at Home: Yes EPDS - PP Depression Screening [place] Pospartum Depression Screen I have been able to laugh and see the funny side of things: (0) As much as I always could I have looked forward with enjoyment to things: (0) As much as I ever did I have blamed myself unnecessarily when things went wrong: (0) No, never I have been anxious or worried for no good reason: (0) No, not at all I have felt scared or panicky for no very good reason: (0) No, not at all Things have been getting on top of me: (0) No, I have been coping as well as ever I have been so unhappy that I have had difficulty sleeping: (0) No, not at all I have felt sad or miserable: (0) No, not at all I have been so unhappy that I have been crying: (0) No, never The thought of harming myself has occurred to me: (0) Never EPDS completed yes HPI Interval History: Sari Ponce presents for visit following delivery on April 16, 2025. She underwent vaginal delivery with vacuum assist and sustained a 3rd- degree laceration extension from her episiotomy. The patient reports that her baby has been experiencing cold and cough symptoms and was seen by a horse identifier, though the baby was not admitted to the hospital. She is not currently . Regarding her own recovery, the patient continues to appear pale and has concerns about her healing process. She expresses fear about touching the perineal area and asks for clarification about what activities are safe during her recovery period. She is a female with an obstetric history of G1 T1 L1. She delivered on April 16, 2025 via vaginal delivery with vacuum assistance complicated by third-degree laceration extension from episiotomy. She is currently approximately 4 weeks at time of visit. ROS: Negative except as stated above, limited to RADIAGRAPH OPERATOR and pertinent complaints. Exam General General Appearance: alert, in no apparent distress and healthy appearing Head Head exam: atraumatic Neck Neck exam: Present normal inspection and trachea midline Chest Chest inspection: Present normal inspection and symmetric chest wall rise External exam: Present normal external exam; Absent tenderness Neuro Neurological exam: Present oriented X3 Psych Psychiatric exam: Present normal affect and normal mood Office Procedures OBC Clinic LOC & Office Proc's Nursing/Assessment Patient Status: Established Patient OB Clinic Nursing Assessment: Medication Reconciliation, Update PMH in EMR and Vital Signs OB Clinic Coordination of Care: Complex Care and Chronic Disease 1-5, Consent,records obtained, informed consent, Education Simp Pt/Fam, 1 Ins Authorization, Lab and Imaging orders, Results/Orders obtained and Staff clarify orders Established Patient Charge Established Patient Point Assignment: 120 Established Patient Point Charge: EP Level 4 (120-155) Assessment & Plan Diagnosis / Problem List (1) Vacuum-assisted vaginal delivery: Status: Acute (2) Encounter for routine follow-up: Status: Acute Plan Anemia: - Hemoglobin dropped from initial 11.4 to 9.0, indicating anemia likely related to blood loss during delivery complicated by third-degree laceration and vacuum assist. - Patient appears pale on examination. - Current hemoglobin status unknown and requires reassessment to determine if levels are recovering or if intervention is needed. Plan: - Order CBC to assess current hemoglobin levels. - Complete lab work today or Saturday. - If hemoglobin has not improved, will initiate high-dose iron supplementation or IV iron therapy. - Follow-up in 2 weeks to review lab results. Third-Degree Laceration Repair: - Patient underwent episiotomy with third-degree laceration extension during vacuum-assisted delivery on 04-16-2025. - Currently approximately 4 weeks . - Repair healing status needs assessment at 6-week vicente. Plan: - Avoid internal manipulation or stretching of perineal area. - External cleaning with wet wipes and toilet tissue is acceptable. - Minimize excessive touching to prevent inflammation. - Pelvic examination in 2 weeks (at 6-week vicente) to assess healing of repair. Routine Care: - Patient is approximately 4 weeks following vacuum-assisted vaginal delivery. - Not currently . - Baby had recent illness requiring pediatric evaluation but was not admitted to hospital. Plan: - Return visit in 2 weeks for completion of 6-week evaluation. - Will assess lab results and perform pelvic examination at that time.
== END 2025-05-14 09:18 | disposition home or self-care (01) ==
LOC: HODSOBC 08:55
PROVIDERS: Supervising Provider Obstetrics & Gynecology; Visit Provider Obstetrics & Gynecology
DX: Z39.2 Encounter for routine postpartum follow-up (principal); O90.81 Anemia of the puerperium; D50.0 Iron deficiency anemia secondary to blood loss (chronic)
CPT/HCPCS: 99214; G0463

== ENCOUNTER 2025-05-24 09:52 | Outpatient (AMB) | payer MEDICAID, SELFPAY ==
[2025-05-24 10:00] VITALS: BP 113/76; PULSE 82; RESP 18; TEMP 36.8; O2SAT 98; BMI 24.0
--- NOTE | 2025-05-24 10:00 | GYNCLNT_ITS ---
Vital Signs 05/24/25 10:00 Height 1.63 m Height Method Stated Weight 63.957 kg Weight Measurement Method Standing Scale BMI 24.0 BP 113/76 Blood Pressure Source Automatic Cuff Blood Pressure Location Left Upper Arm Position Sitting Respiration 18 Pulse 82 Pulse Source Monitor Temp 98.2 F Temp Source Oral Pulse Oximetry (%) 98 Oxygen Delivery Method Room Air Allergies/Home Meds Allergies & Medications Allergies No Known Allergies Allergy (Verified 05/24/25 10:00) Medication Reconciliation vits no.126-ferrous fum 28 mg iron-folic acid 800 mcg tablet (Classic ) 1 tab PO QDAY 90 days #90 tabs 01/22/25 [Rx Confirmed 05/24/25] ferrous sulfate 325 mg (65 mg iron) tablet 325 mg PO BID 90 days #180 tabs 02/23/25 [Rx Confirmed 05/24/25] estradiol 0.01% (0.1 mg/gram) vaginal cream 1 g vaginal QWEEK 60 days #42.5 grams 05/24/25 [Rx] Intake Visit Data Collection New Patient or Established: Established Patient (seen at [facility] within 3 years) Reason for Visit:: FOLLOW UP PELVIC EXAM Seen by Clinical Staff ONLY (RN/MA): No County Administrator Required: No Do You Feel Safe at Home: Yes Authorities Contacted: N/A PCP or OBGYN visit in last 3 months: Yes Date of Last PCP or OBGYN visit: 05/14/25 Hx Now: No Are you currently on any form of Control: No Pain Present Currently: No Pain Scale Used: Garcia-Bond/Numerical Pain scale:: 0 Smoking Status Smoking Status: Never smoker Immunizations Flu Vaccine in the Last 12 Months: No Flu Vaccine Exclusion Criteria: No Exclusion Criteria 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 Menstrual regularity: regular Flow: normal Monthly: Yes Menopausal: No Currently sexually active: Yes CHIEF LIBRARIAN EXTENSION DEPARTMENT: Past Medical History Past Medical History: No Hx Neurological Disorders, No Hx Cardiac Disorders, No Hx Cancer, Yes Hx Blood Disorders, Yes Hx Anemia, No Hx Gastrointestinal Disorders, No Hx Renal Disease, No Hx Diabetes Mellitus Type 1 and No Hx Diabetes Mellitus Type 2 Questionnaires Covid-19 Vaccine Questionnaire Has patient been vacinated for Covid-19 Have you been vacinated for Covid-19: Yes PHQ-9 PHQ-2 Over the last 2 weeks, how often have you been bothered by any of the following problems? 1. Little interest or pleasure in doing things: not at all 2. Feeling down, depressed, or hopeless: not at all Total score: 0 PHQ-9 3. Trouble falling or staying asleep, or sleeping too much: Not at all 4. Feeling tired or having little energy: Not at all 5. Poor appetite or overeating: Not at all 6. Feeling bad about yourself - or that you are a failure or have let yourself or your family down: Not at all 7. Trouble concentrating on things, such as reading the newspaper or watching television: Not at all 8. Moving or speaking so slowly that other people could have noticed? - Or the opposite - being so fidgety or restless that you have been moving around a lot more than usual: not at all 9. Thoughts that you would be better off or of hurting yourself in some way: Not at all Total score: 0 If you checked off any problems, how difficult have these problems made it for you to do your work, take care of things at home, or get along with other people?: not difficult at all Source: Developed by Drs. Tyler Galvez, Arelis Felix, Galo Dudley and colleagues, with an educational dylan from [email or web address]. Depression screen completed yes Social History Living Situation History Lives With: Family Housing: mobile Tobacco History Smoking Status: Never smoker Second Hand Smoke Exposure: No Alcohol History Alcohol Intake: Never Domestic Abuse History Do You Feel Safe at Home: Yes History of Present Illness HPI Narrative Sari Ponce presents for a follow-up visit approximately 5-6 weeks after delivery on April 16. She reports feeling better overall since her last visit and notes improvement in her previous symptoms of feeling ill and lightheaded. The patient states she has not experienced lightheadedness recently and feels a little bit better compared to her previous condition. She was previously ordered a CBC blood test due to feeling unwell but had not completed it at the time of this visit. She has a history of recent delivery on April 16 with episiotomy or perineal repair, with sutures healing well at approximately 5-6 weeks . The patient denies wanting control at this time. She has an obstetric history of G1 T1 L1. Her delivery was on April 16, 2025 via delivery requiring sutures/repair. Living child present at visit. ROS: General: Negative for feeling ill, reports feeling better and no longer experiencing lightheadedness. Exam Narrative Physical exam: - Gynecologic: Perineal examination reveals well-healed surgical site with good appearance. Office Procedures OBC Clinic LOC & Office Proc's Nursing/Assessment Patient Status: Established Patient OB Clinic Nursing Assessment: Medication Reconciliation, Update PMH in EMR and Vital Signs OB Clinic Coordination of Care: Complex Care and Chronic Disease 1-5, Consent,records obtained, informed consent, Education Simp Pt/Fam, Lab and Imaging orders, Results/Orders obtained and Staff clarify orders Miscellaneous Interventions: Pelvic Comp w/OB cult Established Patient Charge Established Patient Point Assignment: 120 Established Patient Point Charge: EP Level 4 (120-155) Assessment & Plan Diagnosis / Problem List (1) Perineal laceration complicating delivery: Status: Acute (2) Encounter for routine follow-up: Status: Acute Plan healing status: - Patient is approximately 5-6 weeks following delivery on April 16. - Physical examination reveals good healing with sutures intact and well-healed appearance. - Patient reports improvement in symptoms, specifically noting decreased episodes of lightheadedness compared to previous visit. - Natural recovery from anemia appears to be progressing as expected at the 6-week timeframe. Plan: - Apply estrogen cream to perineal area once weekly for 2 months to accelerate healing process. - Continue to avoid intercourse for an additional 2 weeks. - Complete CBC blood test at patient's convenience to assess for anemia (non- fasting). - No routine follow-up visit scheduled. - Contact clinic if any concerns arise. Contraception counseling: - Patient declined contraceptive options when offered during visit. Plan: - No contraceptive method initiated per patient preference.
== END 2025-05-24 10:24 | disposition home or self-care (01) ==
PROVIDERS: Supervising Provider Obstetrics & Gynecology; Visit Provider Obstetrics & Gynecology
DX: Z39.2 Encounter for routine postpartum follow-up (principal); O90.81 Anemia of the puerperium
CPT/HCPCS: 99214; G0463